=== PATIENT | female | born 1960 | race Caucasian/White ===

== ENCOUNTER 2016-07-10 06:08 | Emergency (ER) | payer OTHER ==
[~2016-07-10 06:08] MED LIST: DENAVIR TOP; KEFL500C OR; MULTIVIT PO; VICO5TAB OR; VITA500T OR; VITATAB38 OR; ZINC220T2 OR
[2016-07-10] MEDS ORDERED: KETOROLAC 30 MG/ML VIAL (J1885) As Ordered ONE (07:10)
[2016-07-10] MEDS ORDERED: PERCOCET 5MG/325MG TAB As Ordered ONE (08:17)
--- NOTE | 2016-07-10 08:57 | REP ---
Duplex extremity venous ultrasound: Left lower extremity. History: Left calf pain. Findings: The deep veins are anechoic and fully compressible from the groin to the popliteal fossa in the left lower extremity. Color flow imaging is homogeneous. Spectral Doppler interrogation demonstrates intact respiratory variation in flow and normal manual augmentation of flow. There is no evidence of deep vein thrombosis. There is a 6.8 x 1.1 x 3.5 cm Frank's cyst in the popliteal soft tissues. Impression: Negative left lower extremity duplex venous ultrasound. No evidence of deep vein thrombosis. Incidental note is made of a Frank's cyst in the left posterior popliteal soft tissues. Signed by Tarun Mcdermott MD 07/10/2016 08:49 A
[2016-07-10] MEDS ORDERED: NORCO, ANEXSIA 5/325MG TABLET (HYDROcodone/ACETAMINOPHEN) As Ordered ONE (09:17)
--- NOTE | 2016-07-10 09:25 | EDDOCDS ---
Nurse's Notes [facility] Name: Kira Rodriguez Age: 56 yrs Sex: Female : 1960 Arrival Date: 07/10/2016 Time: 06:08 Bed 10 Private MD: Lorri Hamilton E Diagnosis: Synovial cyst of popliteal space [Frank], left knee-left leg pain, US - negative DVT Presentation: 07/10 06:27 Presenting complaint: Patient states: "Back of left calf feels like it's in a vice." km Numbness left foot. Leg started aching at 2000 and got worse through the night. Suicide/Homicide risk assessment- the patient denies having any suicidal and/or homicidal ideations and does not present with any other emotional, behavioral or mental health complaints. Status: Patient is not a client services associate or dependent. Transition of care: patient was not received from another setting of care. 06:27 Acuity: VERONIKA Level 3 [facility] [place] 06:27 Method Of Arrival: Walkin/Carried/Asstd [facility] [place] 07:00 Adult Sepsis Screening: The patient does not have new or worsening altered mentation. js13 Patient's respiratory rate is less than 22. Systolic blood pressure is greater than 100. Patient has a qSOFA score of 0- Negative Sepsis Screen. Triage Assessment: 06:34 General: Appears in no apparent distress, uncomfortable, Behavior is appropriate for km age, cooperative, pleasant. Pain: Location: left calf Pain currently is 9 out of 10 on a pain scale. Quality of pain is described as crushing, squeezing, Pain began gradually. Pt Declines HIV testing. Musculoskeletal: Reports pain in left calf. Historical: - Allergies: an antibiotic; - Home Meds: 1. Lasix 40 mg Oral tab 1 tab 2 times per day (Last dose: 07/09/2016) 2. Klor-Con 10 10 mEq Oral TbER 1 tab 2 times per day (Last dose: 07/09/2016) 3. duloxetine 30 mg Oral cpDR 1 cap 2 times per day (Last dose: 07/09/2016) 4. gabapentin 100 mg Oral tab 1 tab in the morning and 2 tabs at night (Last dose: 07/09/2016) 5. multivitamin Oral tab 1 tablet daily (Last dose: 07/09/2016) 6. Mucinex DM 30-600 mg oral Tb12 1 tab every 12 hours (Last dose: 07/09/2016) - PMHx: cellulitis Right leg; Right leg swelling; Fibromyalgia; - PSHx: ; Hysterectomy; - Social history: Smoking status: Patient states was never smoker of tobacco. No barriers to communication noted, The patient speaks fluent Spanish, Speaks appropriately for age. - Family history: Not pertinent. - : The pt / caregiver states he / she is not on anticoagulants. Home medication list is obtained from the patient. - Exposure Risk Screening:: None identified. Screenin:13 Screening information is obtained from the patient. Fall risk: No risks identified. js13 Assistance ADL's: requires no assistance with activities of daily living. Abuse/DV Screen: The patient / caregiver reports he/she is: not in a situation that causes fear, pain or injury. Nutritional screening: No deficits noted. Advance Directives: There is no active DNR order. home support is adequate. Assessment: 07:13 General: Appears uncomfortable. Pain: Location: left leg. Neurological: Level of js13 Consciousness is awake, alert. Respiratory: Airway is patent Respiratory effort is even, unlabored, Respiratory pattern is regular, symmetrical. Derm: Skin is pink, warm & dry. 08:56 General: Appears in no apparent distress, Behavior is appropriate for age, cooperative. js13 Pain: Location: left leg. Neurological: Level of Consciousness is awake, alert. Respiratory: Airway is patent Respiratory effort is even, unlabored, Respiratory pattern is regular, symmetrical. Derm: Skin is pink, warm & dry. Vital Signs: 06:34 BP 143 / 86; Pulse 95; Resp 22; Temp 96.6(O); Pulse Ox 98% on R/A; Weight 111.13 kg kmg1 (R); Height 5 ft. 4 in. (162.56 cm) (R); Pain 9/10; 09:17 Pain 3/10; js13 09:18 BP 133 / 77 LA Sitting (auto/reg); Pulse 67; Resp 20; Temp 96.6; Pulse Ox 96% on R/A; bnb Pain 5/10; 09:18 Pain 3/10; js13 06:34 Body Mass Index 42.05 (111.13 kg, 162.56 cm) kmg1 Vitals: 06:34 Log In Time: July 10, 2016 at 06:08. [facility] [place] ED Course: 06:09 Patient visited by Kieran Cochran Reg. pm4 06:09 Patient moved to Waiting pm4 06:10 Lorri Hamilton is Private Physician. pm4 06:29 Triage Initiated kmg1 06:38 [facility] Payment Agreement was scanned into [employer] and attached to record. pm4 06:42 Pushpa Fabian RN is Primary Nurse. kmg1 06:42 Patient moved to 10 kmg1 06:54 Armando Brar DO is Attending Physician. cs11 06:54 Patient visited by Armando Brar DO. cs11 07:00 Attending Physician role handed off by Armando Brar DO ml 07:00 Gretchen Leija MD is Attending Physician. ml 07:02 Sheron Hayes,ZULEMA is Primary Nurse. js13 07:13 The patient / caregiver is instructed regarding the plan of care and ED course. js13 07:13 No IV's were initiated during this patient's visit. No procedures done that require js13 assistance. 07:14 Patient visited by Sheron Hayes,ZULEMA. js13 08:03 Primary Nurse role handed off by Pushpa Fabian RN deg 08:13 Patient moved to Ultrasound sm5 08:43 Patient moved to 10 sm5 08:49 Patient visited by Elio Cunningham. jml1 08:57 Patient visited by Sheron Hayes,ZULEMA. js13 08:58 Ultrasound LE Unilateral R/O DVT Returned. EDMS 09:11 Lorri Hamilton is Referral Physician. ml 09[facility] ml 09:18 Patient visited by Zohra Baez PCA. bnb Administered Medications: 07:13 Drug: ketorolac 60 mg [ketorolac 30 mg/mL (1 mL) injection solution (2 mL)] Route: IM; js13 Site: left deltoid; 09:18 Follow up: Pain 3/10 Adult; Response: Pain is decreased js13 08:20 Drug: oxyCODONE-acetaminophen 1 tabs [oxycodone-acetaminophen 5 mg-325 mg tablet (1 hs1 tabs)] Route: PO; 09:17 Follow up: Pain 3/10 Adult; Response: Confirmed pt not driving.; Pain is decreased js13 09:17 Drug: HYDROcodone-acetaminophen 2 tabs [hydrocodone 5 mg-acetaminophen 325 mg tablet (2 js13 tabs)] Route: PO; 09:18 Follow up: Response: Pt left department before re-evaluation is appropriate js13 Order Results: Radiology Order: Ultrasound LE Unilateral R/O DVT Test: Ultrasound LE Unilateral R/O DVT REASON FOR EXAMINATION: Deformity/Swelling; Duplex extremity venous ultrasound: Left lower extremity.; ; History: Left calf pain.; ; Findings: The deep veins are anechoic and fully compressible from the groin to; the popliteal fossa in the left lower extremity. Color flow imaging is; homogeneous. Spectral Doppler interrogation demonstrates intact respiratory; variation in flow and normal manual augmentation of flow. There is no evidence; of deep vein thrombosis. There is a 6.8 x 1.1 x 3.5 cm Frank's cyst in the; popliteal soft tissues.; ; Impression:; ; Negative left lower extremity duplex venous ultrasound. No evidence of deep vein; thrombosis. Incidental note is made of a Frank's cyst in the left posterior; popliteal soft tissues.; ; ; Signed by; Tarun Mcdermott MD 07/10/2016 08:49 A; Outcome: 09:11 Discharge ordered by Provider. 09:23 Discharge Assessment: Patient awake, alert and oriented x 3. No cognitive and/or js13 functional deficits noted. Patient verbalized understanding of disposition instructions. patient administered narcotics - yes. Pt provided with safe discharge. The following High Risk Discharge criteria are identified: None. Discharged to home ambulatory, with significant other. Condition: stable. Discharge instructions given to patient, Instructed on discharge instructions, follow up and referral plans. medication usage, Demonstrated understanding of instructions, medications, Pt was receptive of discharge instructions/ teaching. Prescriptions given X 2, Work note provided to patient. Ultrasound Study completed. Property :Personal belongings accompany Pt. 09:24 Patient left the ED. js13 Signatures: Dispatcher [employer] EDMS Gretchen Leija MD MD ml Murray, Denise, Medical Laboratory Technologist Unit deg Rebeca Oates RN RN kmg1 Jesica Cunningham 5 Dilma Bell RN RN hs1 Elio Cunningham jml1 Sheron Hayes RN RN js13 Armando Brar DO DO cs11 Kieran Cochran, Reg Reg pm4 Zohra Baez, MACHINE SETTER MACHINE SETTER bnb MTDD
--- NOTE | 2016-07-10 09:25 | EDDOCDS ---
Physician Documentation [facility] Name: Kira Rodriguez Age: 56 yrs Sex: Female : 1960 Arrival Date: 07/10/2016 Time: 06:08 Bed 10 Private MD: Lorri Zhang E Disposition: 07/10/16 09:11 Discharged to Home/Self Care. Impression: Synovial cyst of popliteal space [Frank], left knee - left leg pain, US - negative DVT. - Condition is Stable. - Discharge Instructions: Frank Cyst, Leg Cramps. - Prescriptions for Ibuprofen 600 mg Oral Tablet - take 1 tablet by ORAL route every 8 hours As needed take with food; 20 tablet. [place] 5- 325 mg Oral Tablet - take 1 tablet by ORAL route every 8 hours As needed MDD: 4 tabs; 20 tablet. - Work Release Form - 3 day, Medication Reconciliation, Local Pharmacy Hours form. - Follow up: Lorri Zhang; When: 4 - 5 days. Follow up: Orthopaedics, [facility]; When: 4 - 5 days. - Problem is new. - Symptoms have improved. - Notes: please get repeat ultrasound of leg in one week. follow up with karol zhang and charles. return if worsening symptoms Historical: - Allergies: an antibiotic; - Home Meds: 1. Lasix 40 mg Oral tab 1 tab 2 times per day (Last dose: 07/09/2016) 2. Klor-Con 10 10 mEq Oral TbER 1 tab 2 times per day (Last dose: 07/09/2016) 3. duloxetine 30 mg Oral cpDR 1 cap 2 times per day (Last dose: 07/09/2016) 4. gabapentin 100 mg Oral tab 1 tab in the morning and 2 tabs at night (Last dose: 07/09/2016) 5. multivitamin Oral tab 1 tablet daily (Last dose: 07/09/2016) 6. Mucinex DM 30-600 mg oral Tb12 1 tab every 12 hours (Last dose: 07/09/2016) - PMHx: cellulitis Right leg; Right leg swelling; Fibromyalgia; - PSHx: ; Hysterectomy; - Social history: Smoking status: Patient states was never smoker of tobacco. No barriers to communication noted, The patient speaks fluent Kyrgyz, Speaks appropriately for age. - Family history: Not pertinent. - : The pt / caregiver states he / she is not on anticoagulants. Home medication list is obtained from the patient. - Exposure Risk Screening:: None identified. Vital Signs: 07/10 06:34 BP 143 / 86; Pulse 95; Resp 22; Temp 96.6(O); Pulse Ox 98% on R/A; Weight 111.13 kg / kmg1 245 lbs (R); Height 5 ft. 4 in. (162.56 cm) (R); Pain 9/10; 09:17 Pain 3/10; js13 09:18 BP 133 / 77 LA Sitting (auto/reg); Pulse 67; Resp 20; Temp 96.6; Pulse Ox 96% on R/A; bnb Pain 5/10; 09:18 Pain 3/10; js13 06:34 Body Mass Index 42.05 (111.13 kg, 162.56 cm) kmg1 MDM: 06:38 [facility] Payment Agreement was scanned into [employer] and attached to record. pm4 06:55 Financial registration complete. pm4 07:07 ketorolac 60 mg IM once ordered. cs11 07:08 Ultrasound LE Unilateral R/O DVT Ordered. EDMS 08:15 oxyCODONE-acetaminophen 5 mg-325 mg 1 tabs PO once ordered. ml 09:11 HYDROcodone-acetaminophen 5 mg-325 mg 2 tabs PO once; to go ordered. ml Administered Medications: 07:13 Drug: ketorolac 60 mg [ketorolac 30 mg/mL (1 mL) injection solution (2 mL)] Route: IM; js13 Site: left deltoid; 09:18 Follow up: Pain 3/10 Adult; Response: Pain is decreased js13 08:20 Drug: oxyCODONE-acetaminophen 1 tabs [oxycodone-acetaminophen 5 mg-325 mg tablet (1 hs1 tabs)] Route: PO; 09:17 Follow up: Pain 3/10 Adult; Response: Confirmed pt not driving.; Pain is decreased js13 09:17 Drug: HYDROcodone-acetaminophen 2 tabs [hydrocodone 5 mg-acetaminophen 325 mg tablet (2 js13 tabs)] Route: PO; 09:18 Follow up: Response: Pt left department before re-evaluation is appropriate js13 Signatures: Dispatcher [employer] EDMS Gretchen Leija MD MD ml Garrison, Kelly, RN RN kmg1 Sheron HayesRN RN js13 Armando Brar, DO [place] cs11 Kieran Cochran, Reg Reg pm4 Dilma Bell RN hs1 The chart was reviewed and I authenticate all verbal orders and agree with the evaluation and treatment provided.Attachments: 06:38 [facility] Payment Agreement pm4 MTDD
--- NOTE | 2016-07-12 10:25 | EDDOCDS ---
Physician Documentation [facility] Name: Kira Rodriguez Age: 56 yrs Sex: Female : 1960 Arrival Date: 07/10/2016 Time: 06:08 Bed 10 Private MD: Lorri Zhang E Disposition: 07/10/16 09:11 Discharged to Home/Self Care. Impression: Synovial cyst of popliteal space [Frank], left knee - left leg pain, US - negative DVT. - Condition is Stable. - Discharge Instructions: Frank Cyst, Leg Cramps. - Prescriptions for Ibuprofen 600 mg Oral Tablet - take 1 tablet by ORAL route every 8 hours As needed take with food; 20 tablet. [place] 5- 325 mg Oral Tablet - take 1 tablet by ORAL route every 8 hours As needed MDD: 4 tabs; 20 tablet. - Work Release Form - 3 day, Medication Reconciliation, Local Pharmacy Hours form. - Follow up: Lorri Zhang; When: 4 - 5 days. Follow up: Orthopaedics, [facility]; When: 4 - 5 days. - Problem is new. - Symptoms have improved. - Notes: please get repeat ultrasound of leg in one week. follow up with karol zhang and charles. return if worsening symptoms Historical: - Allergies: an antibiotic; - Home Meds: 1. Lasix 40 mg Oral tab 1 tab 2 times per day (Last dose: 07/09/2016) 2. Klor-Con 10 10 mEq Oral TbER 1 tab 2 times per day (Last dose: 07/09/2016) 3. duloxetine 30 mg Oral cpDR 1 cap 2 times per day (Last dose: 07/09/2016) 4. gabapentin 100 mg Oral tab 1 tab in the morning and 2 tabs at night (Last dose: 07/09/2016) 5. multivitamin Oral tab 1 tablet daily (Last dose: 07/09/2016) 6. Mucinex DM 30-600 mg oral Tb12 1 tab every 12 hours (Last dose: 07/09/2016) - PMHx: cellulitis Right leg; Right leg swelling; Fibromyalgia; - PSHx: ; Hysterectomy; - Social history: Smoking status: Patient states was never smoker of tobacco. No barriers to communication noted, The patient speaks fluent Cypriot, Speaks appropriately for age. - Family history: Not pertinent. - : The pt / caregiver states he / she is not on anticoagulants. Home medication list is obtained from the patient. - Exposure Risk Screening:: None identified. Vital Signs: 07/10 06:34 BP 143 / 86; Pulse 95; Resp 22; Temp 96.6(O); Pulse Ox 98% on R/A; Weight 111.13 kg / kmg1 245 lbs (R); Height 5 ft. 4 in. (162.56 cm) (R); Pain 9/10; 09:17 Pain 3/10; js13 09:18 BP 133 / 77 LA Sitting (auto/reg); Pulse 67; Resp 20; Temp 96.6; Pulse Ox 96% on R/A; bnb Pain 5/10; 09:18 Pain 3/10; js13 06:34 Body Mass Index 42.05 (111.13 kg, 162.56 cm) kmg1 MDM: 06:38 [facility] Payment Agreement was scanned into [employer] and attached to record. pm4 06:55 Financial registration complete. pm4 07:07 ketorolac 60 mg IM once ordered. cs11 07:08 Ultrasound LE Unilateral R/O DVT Ordered. EDMS 08:15 oxyCODONE-acetaminophen 5 mg-325 mg 1 tabs PO once ordered. ml 09:11 HYDROcodone-acetaminophen 5 mg-325 mg 2 tabs PO once; to go ordered. ml 14:23 T-Sheet-- Draft Copy was scanned into [employer] and attached to record. gb 14:23 Radiology Report was scanned into [employer] and attached to record. gb Administered Medications: 07:13 Drug: ketorolac 60 mg [ketorolac 30 mg/mL (1 mL) injection solution (2 mL)] Route: IM; js13 Site: left deltoid; 09:18 Follow up: Pain 3/10 Adult; Response: Pain is decreased js13 08:20 Drug: oxyCODONE-acetaminophen 1 tabs [oxycodone-acetaminophen 5 mg-325 mg tablet (1 hs1 tabs)] Route: PO; 09:17 Follow up: Pain 3/10 Adult; Response: Confirmed pt not driving.; Pain is decreased js13 09:17 Drug: HYDROcodone-acetaminophen 2 tabs [hydrocodone 5 mg-acetaminophen 325 mg tablet (2 js13 tabs)] Route: PO; 09:18 Follow up: Response: Pt left department before re-evaluation is appropriate js13 Signatures: Dispatcher [employer] Gretchen Urrutia MD MD Rebeca Oates, RN RN kmg1 Isabella Ott, Reg Reg gb Sheron Hayes RN RN js13 Armando Brar, DO cs11 Kieran Cochran, Reg Reg pm4 Dilma Bell RN hs1 The chart was reviewed and I authenticate all verbal orders and agree with the evaluation and treatment provided.Attachments: 06:38 [facility] Payment Agreement pm4 14:23 T-Sheet-- Draft Copy gb Chart Complete MTDD
--- NOTE | 2016-07-12 10:25 | EDDOCDS ---
Physician Documentation [facility] Name: Kira Rodriguez Age: 56 yrs Sex: Female : 1960 Arrival Date: 07/10/2016 Time: 06:08 Bed 10 Private MD: Lorri Zhang E Disposition: 07/10/16 09:11 Discharged to Home/Self Care. Impression: Synovial cyst of popliteal space [Frank], left knee - left leg pain, US - negative DVT. - Condition is Stable. - Discharge Instructions: Frank Cyst, Leg Cramps. - Prescriptions for Ibuprofen 600 mg Oral Tablet - take 1 tablet by ORAL route every 8 hours As needed take with food; 20 tablet. [place] 5- 325 mg Oral Tablet - take 1 tablet by ORAL route every 8 hours As needed MDD: 4 tabs; 20 tablet. - Work Release Form - 3 day, Medication Reconciliation, Local Pharmacy Hours form. - Follow up: Lorri Zhang; When: 4 - 5 days. Follow up: Orthopaedics, [facility]; When: 4 - 5 days. - Problem is new. - Symptoms have improved. - Notes: please get repeat ultrasound of leg in one week. follow up with karol zhang and charles. return if worsening symptoms Historical: - Allergies: an antibiotic; - Home Meds: 1. Lasix 40 mg Oral tab 1 tab 2 times per day (Last dose: 07/09/2016) 2. Klor-Con 10 10 mEq Oral TbER 1 tab 2 times per day (Last dose: 07/09/2016) 3. duloxetine 30 mg Oral cpDR 1 cap 2 times per day (Last dose: 07/09/2016) 4. gabapentin 100 mg Oral tab 1 tab in the morning and 2 tabs at night (Last dose: 07/09/2016) 5. multivitamin Oral tab 1 tablet daily (Last dose: 07/09/2016) 6. Mucinex DM 30-600 mg oral Tb12 1 tab every 12 hours (Last dose: 07/09/2016) - PMHx: cellulitis Right leg; Right leg swelling; Fibromyalgia; - PSHx: ; Hysterectomy; - Social history: Smoking status: Patient states was never smoker of tobacco. No barriers to communication noted, The patient speaks fluent Palauan, Speaks appropriately for age. - Family history: Not pertinent. - : The pt / caregiver states he / she is not on anticoagulants. Home medication list is obtained from the patient. - Exposure Risk Screening:: None identified. Vital Signs: 07/10 06:34 BP 143 / 86; Pulse 95; Resp 22; Temp 96.6(O); Pulse Ox 98% on R/A; Weight 111.13 kg / kmg1 245 lbs (R); Height 5 ft. 4 in. (162.56 cm) (R); Pain 9/10; 09:17 Pain 3/10; js13 09:18 BP 133 / 77 LA Sitting (auto/reg); Pulse 67; Resp 20; Temp 96.6; Pulse Ox 96% on R/A; bnb Pain 5/10; 09:18 Pain 3/10; js13 06:34 Body Mass Index 42.05 (111.13 kg, 162.56 cm) kmg1 MDM: 06:38 [facility] Payment Agreement was scanned into [employer] and attached to record. pm4 06:55 Financial registration complete. pm4 07:07 ketorolac 60 mg IM once ordered. cs11 07:08 Ultrasound LE Unilateral R/O DVT Ordered. EDMS 08:15 oxyCODONE-acetaminophen 5 mg-325 mg 1 tabs PO once ordered. ml 09:11 HYDROcodone-acetaminophen 5 mg-325 mg 2 tabs PO once; to go ordered. ml 14:23 T-Sheet-- Draft Copy was scanned into [employer] and attached to record. gb 14:23 Radiology Report was scanned into [employer] and attached to record. gb Administered Medications: 07:13 Drug: ketorolac 60 mg [ketorolac 30 mg/mL (1 mL) injection solution (2 mL)] Route: IM; js13 Site: left deltoid; 09:18 Follow up: Pain 3/10 Adult; Response: Pain is decreased js13 08:20 Drug: oxyCODONE-acetaminophen 1 tabs [oxycodone-acetaminophen 5 mg-325 mg tablet (1 hs1 tabs)] Route: PO; 09:17 Follow up: Pain 3/10 Adult; Response: Confirmed pt not driving.; Pain is decreased js13 09:17 Drug: HYDROcodone-acetaminophen 2 tabs [hydrocodone 5 mg-acetaminophen 325 mg tablet (2 js13 tabs)] Route: PO; 09:18 Follow up: Response: Pt left department before re-evaluation is appropriate js13 Signatures: Dispatcher [employer] Gretchen Urrutia MD MD Rebeca Oates, RN RN kmg1 Isabella Ott, Reg Reg gb Sheron Hayes RN RN js13 Armando Brar, DO cs11 Kieran Cochran, Reg Reg pm4 Dilma Bell RN hs1 The chart was reviewed and I authenticate all verbal orders and agree with the evaluation and treatment provided.Attachments: 06:38 [facility] Payment Agreement pm4 14:23 T-Sheet-- Draft Copy gb Chart Complete MTDD
--- NOTE | 2016-07-12 10:25 | EDDOCDS ---
Nurse's Notes [facility] Name: Kira Rodriguez Age: 56 yrs Sex: Female : 1960 Arrival Date: 07/10/2016 Time: 06:08 Bed 10 Private MD: Lorri Hamilton E Diagnosis: Synovial cyst of popliteal space [Frank], left knee-left leg pain, US - negative DVT Presentation: 07/10 06:27 Presenting complaint: Patient states: "Back of left calf feels like it's in a vice." km Numbness left foot. Leg started aching at 2000 and got worse through the night. Suicide/Homicide risk assessment- the patient denies having any suicidal and/or homicidal ideations and does not present with any other emotional, behavioral or mental health complaints. Status: Patient is not a surgical services director or dependent. Transition of care: patient was not received from another setting of care. 06:27 Acuity: VERONIKA Level 3 [facility] 06:27 Method Of Arrival: Walkin/Carried/Asstd [facility] 07:00 Adult Sepsis Screening: The patient does not have new or worsening altered mentation. js13 Patient's respiratory rate is less than 22. Systolic blood pressure is greater than 100. Patient has a qSOFA score of 0- Negative Sepsis Screen. Triage Assessment: 06:34 General: Appears in no apparent distress, uncomfortable, Behavior is appropriate for km age, cooperative, pleasant. Pain: Location: left calf Pain currently is 9 out of 10 on a pain scale. Quality of pain is described as crushing, squeezing, Pain began gradually. Pt Declines HIV testing. Musculoskeletal: Reports pain in left calf. Historical: - Allergies: an antibiotic; - Home Meds: 1. Lasix 40 mg Oral tab 1 tab 2 times per day (Last dose: 07/09/2016) 2. Klor-Con 10 10 mEq Oral TbER 1 tab 2 times per day (Last dose: 07/09/2016) 3. duloxetine 30 mg Oral cpDR 1 cap 2 times per day (Last dose: 07/09/2016) 4. gabapentin 100 mg Oral tab 1 tab in the morning and 2 tabs at night (Last dose: 07/09/2016) 5. multivitamin Oral tab 1 tablet daily (Last dose: 07/09/2016) 6. Mucinex DM 30-600 mg oral Tb12 1 tab every 12 hours (Last dose: 07/09/2016) - PMHx: cellulitis Right leg; Right leg swelling; Fibromyalgia; - PSHx: ; Hysterectomy; - Social history: Smoking status: Patient states was never smoker of tobacco. No barriers to communication noted, The patient speaks fluent Frisian, Speaks appropriately for age. - Family history: Not pertinent. - : The pt / caregiver states he / she is not on anticoagulants. Home medication list is obtained from the patient. - Exposure Risk Screening:: None identified. Screenin:13 Screening information is obtained from the patient. Fall risk: No risks identified. js13 Assistance ADL's: requires no assistance with activities of daily living. Abuse/DV Screen: The patient / caregiver reports he/she is: not in a situation that causes fear, pain or injury. Nutritional screening: No deficits noted. Advance Directives: There is no active DNR order. home support is adequate. Assessment: 07:13 General: Appears uncomfortable. Pain: Location: left leg. Neurological: Level of js13 Consciousness is awake, alert. Respiratory: Airway is patent Respiratory effort is even, unlabored, Respiratory pattern is regular, symmetrical. Derm: Skin is pink, warm & dry. 08:56 General: Appears in no apparent distress, Behavior is appropriate for age, cooperative. js13 Pain: Location: left leg. Neurological: Level of Consciousness is awake, alert. Respiratory: Airway is patent Respiratory effort is even, unlabored, Respiratory pattern is regular, symmetrical. Derm: Skin is pink, warm & dry. Vital Signs: 06:34 BP 143 / 86; Pulse 95; Resp 22; Temp 96.6(O); Pulse Ox 98% on R/A; Weight 111.13 kg kmg1 (R); Height 5 ft. 4 in. (162.56 cm) (R); Pain 9/10; 09:17 Pain 3/10; js13 09:18 BP 133 / 77 LA Sitting (auto/reg); Pulse 67; Resp 20; Temp 96.6; Pulse Ox 96% on R/A; bnb Pain 5/10; 09:18 Pain 3/10; js13 06:34 Body Mass Index 42.05 (111.13 kg, 162.56 cm) kmg1 Vitals: 06:34 Log In Time: July 10, 2016 at 06:08. [facility] ED Course: 06:09 Patient visited by Kieran Cochran Reg. pm4 06:09 Patient moved to Waiting pm4 06:10 Lorri Hamilton is Private Physician. pm4 06:29 Triage Initiated kmg1 06:38 [facility] Payment Agreement was scanned into eeden and attached to record. pm4 06:42 Pushpa Fabain,ZULEMA is Primary Nurse. kmg1 06:42 Patient moved to 10 kmg1 06:54 Armando Brar DO is Attending Physician. cs11 06:54 Patient visited by Armando Brar DO. cs11 07:00 Attending Physician role handed off by Armando Brar DO ml 07:00 Gretchen Leija MD is Attending Physician. ml 07:02 Sheron Hayes,ZULEMA is Primary Nurse. js13 07:13 The patient / caregiver is instructed regarding the plan of care and ED course. js13 07:13 No IV's were initiated during this patient's visit. No procedures done that require js13 assistance. 07:14 Patient visited by Sheron Hayes,ZULEMA. js13 08:03 Primary Nurse role handed off by Pushpa Fabian RN deg 08:13 Patient moved to Ultrasound sm5 08:43 Patient moved to 10 sm5 08:49 Patient visited by Elio Cunningham. jml1 08:57 Patient visited by Sheron Hayes,ZULEMA. js13 08:58 Ultrasound LE Unilateral R/O DVT Returned. EDMS 09:11 Lorri Hamilton is Referral Physician. ml 09:[facility]. ml 09:18 Patient visited by Zohra Baez PCA. bnb 14:23 T-Sheet-- Draft Copy was scanned into eeden and attached to record. gb 14:23 Radiology Report was scanned into eeden and attached to record. gb Administered Medications: 07:13 Drug: ketorolac 60 mg [ketorolac 30 mg/mL (1 mL) injection solution (2 mL)] Route: IM; js13 Site: left deltoid; 09:18 Follow up: Pain 3/10 Adult; Response: Pain is decreased js13 08:20 Drug: oxyCODONE-acetaminophen 1 tabs [oxycodone-acetaminophen 5 mg-325 mg tablet (1 hs1 tabs)] Route: PO; 09:17 Follow up: Pain 3/10 Adult; Response: Confirmed pt not driving.; Pain is decreased js13 09:17 Drug: HYDROcodone-acetaminophen 2 tabs [hydrocodone 5 mg-acetaminophen 325 mg tablet (2 js13 tabs)] Route: PO; 09:18 Follow up: Response: Pt left department before re-evaluation is appropriate js13 Order Results: Radiology Order: Ultrasound LE Unilateral R/O DVT Test: Ultrasound LE Unilateral R/O DVT REASON FOR EXAMINATION: Deformity/Swelling; Duplex extremity venous ultrasound: Left lower extremity.; ; History: Left calf pain.; ; Findings: The deep veins are anechoic and fully compressible from the groin to; the popliteal fossa in the left lower extremity. Color flow imaging is; homogeneous. Spectral Doppler interrogation demonstrates intact respiratory; variation in flow and normal manual augmentation of flow. There is no evidence; of deep vein thrombosis. There is a 6.8 x 1.1 x 3.5 cm Frank's cyst in the; popliteal soft tissues.; ; Impression:; ; Negative left lower extremity duplex venous ultrasound. No evidence of deep vein; thrombosis. Incidental note is made of a Frank's cyst in the left posterior; popliteal soft tissues.; ; ; Signed by; Tarun Mcdermott MD 07/10/2016 08:49 A; Outcome: 09:11 Discharge ordered by Provider. 09:23 Discharge Assessment: Patient awake, alert and oriented x 3. No cognitive and/or js13 functional deficits noted. Patient verbalized understanding of disposition instructions. patient administered narcotics - yes. Pt provided with safe discharge. The following High Risk Discharge criteria are identified: None. Discharged to home ambulatory, with significant other. Condition: stable. Discharge instructions given to patient, Instructed on discharge instructions, follow up and referral plans. medication usage, Demonstrated understanding of instructions, medications, Pt was receptive of discharge instructions/ teaching. Prescriptions given X 2, Work note provided to patient. Ultrasound Study completed. Property :Personal belongings accompany Pt. 09:24 Patient left the ED. js13 Signatures: Dispatcher [employer] EDMS Gretchen Leija MD MD ml Murray, Denise, [employer] deg Rebeca Oates RN RN [facility] Isabella Ott Reg Reg gb Marisa, Jesica sm5 Dilma Bell, RN RN hs1 Elio Cunningham jml1 Sheron Hayes,RN RN js13 Armando Brar, DO DO cs11 Kieran Cochran, Reg Reg pm4 Zohra Baez, CORN HUSKER MACHINE OPERATOR CORN HUSKER MACHINE OPERATOR bnb Chart Complete MTDD
== END 2016-07-10 09:24 | disposition home or self-care (01) ==
LOC: M ED 06:08
DX: M71.22 Synovial cyst of popliteal space [Baker], left knee (principal); M79.7 Fibromyalgia; L03.115 Cellulitis of right lower limb; M79.89 Other specified soft tissue disorders; Z79.899 Other long term (current) drug therapy
CPT/HCPCS: 93971; 96372; 99284; J1885

== ENCOUNTER → 2016-07-19 | Outpatient (CLI) | payer OTHER ==
--- NOTE | 2016-07-19 16:16 | REP ---
MRI LEFT KNEE: TECHNIQUE: Axial proton density fat saturation, sagittal proton density T2 STIR, water excitation, coronal proton density, proton density fat saturation. There is an extensive complex tear of the anterior and posterior horns of the lateral meniscus. Medial meniscus demonstrates internal degenerative signal without evidence of a tear. The cruciate and collateral ligaments are intact. The extensor mechanism is intact. There is mild chondromalacia of the patella diffusely. There is fairly severe chondromalacia along the medial femoral condyle with a focal cartilaginous defect about 4 mm in diameter with underlying subchondral marrow edema. This may represent a stage 1 osteochondral lesion. There is mild to moderate diffuse chondromalacia of the medial tibial plateau. There is a moderate joint effusion. There is a suprapatellar plica. There is a popliteal cyst medially. Craniocaudal dimension is about 5.5 cm with a thickness of about 1.8 cm. Increased signal is seen popliteus muscle diffusely consistent with a partial tear. Non-specific edema is seen anterior to the patella tendon. IMPRESSION: Extensive complex tear anterior and posterior horn of the lateral meniscus. Cruciate and collateral ligament are intact. Partial tear of the popliteus muscle. Focal 4 mm cartilaginous defect along the weightbearing surface of the medial femoral condyle with moderate subchondral marrow edema at that location, may represent a stage 1 osteochondral defect. There is otherwise diffuse moderately severe chondromalacia of the medial femoral condyle and mild to moderate diffuse chondromalacia of the medial tibial plateau. Moderate joint effusion. Suprapatellar plica. Popliteal cyst. Signed by Bryan Felix MD 07/20/2016 09:51 A
== END ==
LOC: M RAD 13:39
PROVIDERS: ATTEND Orthopaedic Surgery
DX: S83.272A Complex tear of lateral meniscus, current injury, left knee, initial encounter (principal); X58.XXXA Exposure to other specified factors, initial encounter; Y92.89 Other specified places as the place of occurrence of the external cause; Y93.89 Activity, other specified; Y99.8 Other external cause status; M67.52 Plica syndrome, left knee

== ENCOUNTER → 2017-01-02 | Outpatient (CLI) | payer OTHER ==
--- NOTE | 2017-01-02 15:49 | REPMRS ---
Patient History The patient states she has not had a clinical breast exam in over a year. Family history of endometrial cancer in maternal aunt at age 50 or over. Digital Woman Screen Mammo: January 02, 2017 - Exam #: [id number] Bilateral CC and MLO view(s) were taken. Technologist: Angela Edouard, Technologist Prior study comparison: November 04, 2015, digital woman screen mammo performed at [facility] to [facility]. July 13, 2014, digital woman screen mammo performed at [facility] to [facility]. FINDINGS: There are scattered fibroglandular densities. There has been no change in the appearance of the mammogram from the prior studies. There is a moderate amount of residual fibroglandular tissue which is fairly symmetric. There is no interval development of dominant mass, architectural distortion, or clustered microcalcification suggestive of malignancy. Scattered lymph nodes are seen in the axilla. No significant changes when compared with prior studies. ASSESSMENT: BI-RADS/ACR category 2 mammogram. Benign finding(s). Recommendation Routine screening mammogram in 1 year (for women over age 40). This mammogram was interpreted with the aid of an FDA-approved computer-aided dectection system. A. Negative x-ray reports should not delay biopsy if a dominant or clinically suspicious mass is present. B. Four to eight percent of cancers are not identified by mammography. C. Adenosis and dense breast may obscure an underlying neoplasm. Electronically Signed By: Esdras Nguyen MD 01/02/17 [id number]
== END ==
LOC: M WHC 14:17
PROVIDERS: ATTEND Internal Medicine
DX: Z12.31 Encounter for screening mammogram for malignant neoplasm of breast (principal)

== ENCOUNTER → 2018-01-03 | Outpatient (CLI) | payer OTHER | LOC: M SLEEP 19:36 | DX: G47.30 Sleep apnea, unspecified (principal) ==

== ENCOUNTER → 2018-03-19 | Outpatient (CLI) | payer OTHER | LOC: M WHC 08:03 | DX: Z12.31 Encounter for screening mammogram for malignant neoplasm of breast (principal) | CPT/HCPCS: 77067 ==

== ENCOUNTER 2018-07-11 18:47 | Emergency (ER) | payer OTHER ==
[~2018-07-11] VITALS: Ht 162.6 cm; Wt 111.4 kg
[2018-07-11] MEDS ORDERED: GABA-1171 (18:52)
[2018-07-11] MEDS ORDERED: DULO30CA47 (18:52)
[2018-07-11] MEDS ORDERED: FURO40TA2 (18:52)
[2018-07-11] MEDS ORDERED: POTA1TAB23 (18:52)
[2018-07-11] MEDS ORDERED: PERCOCET 5MG/325MG TAB PO ONE (20:15)
[2018-07-11] MEDS ORDERED: PERC5TAB12 PO (20:48)
[2018-07-11] MEDS ORDERED: OXYCODONE/APAP 5MG/325MG(BULK FOR ED) 1 TABLET PO ONE (21:00)
[2018-07-11 21:03] VITALS: BP 126/95
--- NOTE | 2018-07-12 01:58 | REP ---
Clinical: Trauma. Technique: Frontal view of the chest with multiple views of the right and left hemithorax. Findings: Frontal view of the chest demonstrates no acute cardiopulmonary process. Multiple views of the right and left hemithorax demonstrates no obvious acute rib fracture or pathology. Impression: Normal bilateral rib series Electronically Signed by Kaiden Worley MD 07/12/2018 01:50 A
== END 2018-07-11 21:04 | disposition home or self-care (01) ==
LOC: M ED 18:47
DX: S22.32XA Fracture of one rib, left side, initial encounter for closed fracture (principal); S20.219A Contusion of unspecified front wall of thorax, initial encounter; W01.0XXA Fall on same level from slipping, tripping and stumbling without subsequent striking against object, initial encounter; Y92.410 Unspecified street and highway as the place of occurrence of the external cause; Y93.9 Activity, unspecified; Y99.9 Unspecified external cause status; I51.9 Heart disease, unspecified; Z79.899 Other long term (current) drug therapy; Z88.2 Allergy status to sulfonamides; Z88.8 Allergy status to other drugs, medicaments and biological substances

== ENCOUNTER → 2019-07-25 | Outpatient (CLI) | payer OTHER ==
[~2019-07-25] MED LIST changes: +DULO30CA47; +FURO40TA2; +GABA-1171; +PERC5TAB12 PO; +POTA1TAB23
--- NOTE | 2019-07-25 10:28 | REPMRS ---
Patient History The patient states she had a clinical breast exam in October 2018. Family history of endometrial cancer at age 50 or over in maternal aunt. Digital Woman Screen Mammo: July 25, 2019 - Exam #: [id number] Bilateral CC and MLO view(s) were taken. Technologist: Didi Wolfe, Technologist Prior study comparison: March 19, 2018, bilateral digital woman screen mammo performed at [facility]. January 02, 2017, digital woman screen mammo performed at [facility]. November 04, 2015, digital woman screen mammo performed at [facility]. FINDINGS: The breast tissue is heterogeneously dense. This may lower the sensitivity of mammography. There is a moderate amount of heterogeneously dense fibroglandular tissue which is fairly symmetric. There is no interval development of dominant mass, architectural distortion, or grouped microcalcification typical of malignancy. There has been no change in the appearance of the mammogram from the prior studies. 3-D tomosynthesis shows no additional findings. Assessment: BI-RADS/ACR category 1 mammogram. Negative Mammogram. Recommendation Routine screening mammogram of both breasts in 1 year (for women over age 40). This patient's Lifetime Breast Cancer RIsk is estimated at 7.1 %. This mammogram was interpreted with the aid of an FDA-approved computer-aided dectection system. Electronically Signed By: Abdirahman Mcdermott MD 07/25/19 [id number]
== END ==
LOC: M WHC 09:03
PROVIDERS: ATTEND Internal Medicine
DX: Z12.31 Encounter for screening mammogram for malignant neoplasm of breast (principal); Z80.49 Family history of malignant neoplasm of other genital organs

== ENCOUNTER → 2020-09-10 | Outpatient (REF) | payer OTHER | LOC: M LAB REF 17:07 | PROVIDERS: ATTEND Internal Medicine | DX: L02.212 Cutaneous abscess of back [any part, except buttock and flank] (principal) ==

== ENCOUNTER → 2020-09-17 | Outpatient (REF) | payer OTHER | LOC: M LAB REF 16:32 | PROVIDERS: ATTEND Internal Medicine | DX: L02.212 Cutaneous abscess of back [any part, except buttock and flank] (principal) ==

== ENCOUNTER → 2020-09-24 | Outpatient (CLI) | payer OTHER ==
--- NOTE | 2020-09-24 09:16 | REP ---
INDICATION: SEBACEOUS CYST LOWER BACK COMPARISON: None TECHNIQUE: Real time hughes scale and color ultrasound examination using linear high-frequency transducer. FINDINGS: Directed ultrasound examination overlying the area of interest along the left back demonstrates an ill-defined avascular hyperechoic area measuring 15 x 10 x 12 mm. Finding is consistent with the history of sebaceous cyst although differential diagnosis may include small lipoma. IMPRESSION: 1. Vague hyperechoic avascular lesion in the area of interest. Differential diagnosis includes sebaceous cyst as well as small lipoma. <Electronically signed by Kaiden Worley > 09/24/20 0913
== END ==
LOC: M RAD 08:37
PROVIDERS: ATTEND Surgery
DX: L72.3 Sebaceous cyst (principal)

== ENCOUNTER → 2021-02-16 | Outpatient (CLI) | payer OTHER ==
--- NOTE | 2021-02-16 09:46 | REPMRS ---
Patient History The patient states she has not had a clinical breast exam in over a year. Family history of endometrial cancer at age 50 or over in maternal aunt. Patient states no breast complaints today. Patient has signed MRS History Sheet. Digital Woman Screen Mammo: February 16, 2021 - Exam #: [id number] Bilateral CC and MLO view(s) were taken. Technologist: Pita Vernon, Technologist Prior study comparison: July 25, 2019, bilateral digital woman screen mammo performed at [facility]. March 19, 2018, bilateral digital woman screen mammo performed at [facility]. FINDINGS: There are scattered fibroglandular densities. Screening. Digital screening (2D) mammography was performed bilaterally in the CC and MLO projections. Additionally, breast tomosynthesis (3D mammography) was performed bilaterally in the CC and MLO projections. Todays exam was compared to the prior exam/exams. By history, the patient has no complaints of a palpable breast abnormality or other significant breast complaints. The breasts are unchanged in size and shape. There are no estelita-soft tissue densities or spiculated masses. There is no internal architectural distortion. Once again, stable benign appearing calcifications are seen.There are no suspicious estelita-calcific clusters. Skin thickening or nipple retraction is not present. IMPRESSION: BI-RADS Category 2- Benign Findings. There is no evidence of malignant alteration of the breasts. Followup examination recommended in one year. The Volpara volumetric breast density category is B, there are scattered areas of fibroglandular densities. This mammogram was read with the assistance of Daniela DenisVubiquity,an FDA approved computer aided detection system for mammography. The lifetime Tyrer-Cuzick score is 6.8 % Negative x-ray reports should not delay surgical consultation if a dominant or clinically suspicious mass is present. Not all breast cancers can be identified by mammography. Therefore, we recommend that you continue to perform regular breast self-examination and physical examination and then promptly contact your physician of any concerns or changes. Adenosis and dense breasts may obscure an underlying neoplasm. Assessment: BI-RADS/ACR category 2 mammogram. Benign Findings. Recommendation Routine screening mammogram of both breasts in 1 year. Electronically Signed By: Andrew Silva DO 02/16/21 0921
== END ==
LOC: M WHC 08:48
PROVIDERS: ATTEND Internal Medicine
DX: Z12.31 Encounter for screening mammogram for malignant neoplasm of breast (principal); Z80.49 Family history of malignant neoplasm of other genital organs; R92.1 Mammographic calcification found on diagnostic imaging of breast

== ENCOUNTER → 2021-11-03 | Outpatient (CLI) | payer OTHER | LOC: M WUC 09:36 | PROVIDERS: ATTEND Internal Medicine | DX: M50.30 Other cervical disc degeneration, unspecified cervical region (principal); M25.78 Osteophyte, vertebrae ==

== ENCOUNTER → 2022-04-25 | Outpatient (CLI) | payer OTHER | LOC: M WHC 14:49 | PROVIDERS: ATTEND Internal Medicine | DX: Z12.31 Encounter for screening mammogram for malignant neoplasm of breast (principal) ==

== ENCOUNTER → 2023-07-16 | Outpatient (CLI) | payer MEDICARE, OTHER | LOC: M WHC 10:11 | PROVIDERS: ATTEND Internal Medicine | DX: Z12.31 Encounter for screening mammogram for malignant neoplasm of breast (principal); M85.89 Other specified disorders of bone density and structure, multiple sites; R92.323 Mammographic fibroglandular density, bilateral breasts ==

== ENCOUNTER → 2024-08-13 | Outpatient (CLI) | payer MEDICARE, OTHER | LOC: M WHC 10:31 | PROVIDERS: ATTEND Internal Medicine | DX: M85.80 Other specified disorders of bone density and structure, unspecified site (principal); Z12.31 Encounter for screening mammogram for malignant neoplasm of breast ==